=== PATIENT | female | born 1955 | race African-American/Black ===

== ENCOUNTER 2023-10-15 07:27 | Inpatient (IN) | payer MEDICARE, MEDICAID ==
[~2023-10-15] VITALS: Ht 167.6 cm; Wt 93.0 kg
[2023-10-15] MEDS ORDERED: SODIUM CHLORIDE 0.9% 1,000 ML IV SCH (07:30)
[2023-10-15] MEDS ORDERED: ROPIVACAINE HCL 1% 20 ML VIAL EPI ONE (08:09)
[2023-10-15] MEDS ORDERED: VANCOMYCIN HCL 1 GM/VIAL ONE (08:09)
[2023-10-15] MEDS ORDERED: POLYMYXIN B SULFATE 500000 UNITS/VIAL ONE (08:09)
[2023-10-15] MEDS ORDERED: EPINEPHRINE 1:1000 1 MG/ML AMP ONE (08:10)
[2023-10-15] MEDS ORDERED: KETOROLAC 30MG/ML VIAL ONE (08:10)
[2023-10-15] MEDS ORDERED: LIDOCAINE HCL/EPINEPHRINE 1%-EPI 1:100,000 20 ML VIAL ONE (08:10)
[2023-10-15] MEDS ORDERED: MORPHINE SULFATE/PF 1MG/ML 10ML AMP ONE (08:10)
[2023-10-15] MEDS ORDERED: TRANEXAMIC ACID 20 ML ONE (08:46)
[2023-10-15 08:51] LABS: *AMPHETAMINES SCREEN URINE NEGATIVE (NEGATIVE); *BARBITURATES SCREEN URINE NEGATIVE (NEGATIVE); *BENZODIAZEPINES SCREEN URINE NEGATIVE (NEGATIVE); *COCAINE SCREEN URINE NEGATIVE (NEGATIVE); CANNABINOID URINE SCREEN NEGATIVE (NEGATIVE); ECSTASY MDMA SCREEN URINE NEGATIVE (NEGATIVE); METHADONE URINE SCREEN Neg (NEGATIVE); OPIATES URINE SCREEN NEGATIVE (NEGATIVE); PHENCYCLIDINE URINE SCREEN NEGATIVE (NEGATIVE)
[2023-10-15] MEDS ORDERED: METF-414 PO (09:23)
[2023-10-15] MEDS ORDERED: OLAN10TA72 PO ×2 (09:23)
[2023-10-15] MEDS ORDERED: OMEP40CA20 PO (09:23)
[2023-10-15] MEDS ORDERED: CHOL500063 PO (09:23)
[2023-10-15] MEDS ORDERED: DIPH25TA26 PO (09:23)
[2023-10-15] MEDS ORDERED: PIME30CR TP (09:23)
[2023-10-15] MEDS ORDERED: ATOR20TA65 PO (09:23)
[2023-10-15] MEDS ORDERED: AMLO10TA80 PO (09:23)
[2023-10-15] MEDS ORDERED: [UNRECOGNIZED DRUG - CODE] TP (09:23)
[2023-10-15] MEDS ORDERED: HYDR200T35 PO (09:23)
[2023-10-15] MEDS ORDERED: CELE-116 PO (09:23)
[2023-10-15] MEDS ORDERED: MIDAZOLAM HCL 2 MG/2 ML VIAL ONE (10:26)
[2023-10-15] MEDS ORDERED: FENTANYL CITRATE/PF 50MCG/ML 2ML VIAL ONE ×2 (10:29)
[2023-10-15] MEDS ORDERED: CEFAZOLIN SODIUM 1000MG/VIAL ONE (10:29)
[2023-10-15] MEDS ORDERED: GLYCOPYRROLATE 0.2 MG/ML 2ML VIAL ONE (10:36)
[2023-10-15] MEDS ORDERED: PROPOFOL 200MG/20ML VIAL IV ONE (10:37)
[2023-10-15] MEDS ORDERED: SUCCINYLCHOLINE CHLORIDE 200MG/10ML IV ONE (10:38)
[2023-10-15] MEDS ORDERED: DEXAMETHASONE 4MG/ML 1ML VIAL ONE (10:40)
[2023-10-15] MEDS ORDERED: ONDANSETRON HCL 4MG/2ML INJ ONE (10:40)
[2023-10-15] MEDS ORDERED: ROCURONIUM BROMIDE 10MG/ML VIAL 5ML IV ONE (10:41)
[2023-10-15] MEDS ORDERED: ONDANSETRON HCL 4MG/2ML INJ IV PRN ×2 (11:00→11:45)
[2023-10-15] MEDS ORDERED: FENTANYL CITRATE/PF 50MCG/ML 2ML VIAL IV PRN (11:00)
[2023-10-15] MEDS ORDERED: SKIN ADHESIVE 0.7 GM EA TOP ONE (11:35)
[2023-10-15] MEDS ORDERED: ACETAMINOPHEN 325MG TABLET PO PRN (11:45)
[2023-10-15] MEDS: MEPERIDINE HCL/PF 25MG/ML CPJ IV PRN (13:38)
[2023-10-15] MEDS ORDERED: CEFAZOLIN 1000MG PREMIX 50 ML IV SCH (14:00)
[2023-10-15] MEDS: METOCLOPRAMIDE HCL 10MG/2ML VIAL IV SCH (14:19)
[2023-10-15 14:25] VITALS: BP 156/89; PULSE 70; RESP 16; TEMP 98
[2023-10-15 15:00] VITALS: BP 158/86; PULSE 70; RESP 16; TEMP 98
[2023-10-15] MEDS: CEFAZOLIN 1000MG PREMIX 50 ML IV SCH ×2 (15:36→22:15)
[2023-10-15 16:00] VITALS: BP 138/89; PULSE 89; RESP 16; TEMP 98
[2023-10-15] MEDS ORDERED: ERGO1250 PO (17:43)
[2023-10-15] MEDS ORDERED: NALOXONE HCL 0.4MG/ML VIAL IV PRN (17:45)
[2023-10-15 18:20] LABS: CALCIUM 9.4 mg/dL (8.7-10.4); CARBON DIOXIDE 24 mEq/L (21-32); CHLORIDE 106 mEq/L (98-107); CREATININE 0.9 mg/dL (0.6-1.0); GLUCOSE 130 mg/dL (70-105); POTASSIUM 4.3 mEq/L (3.5-5.1); SODIUM 140 mEq/L (136-145); UREA NITROGEN BLOOD 21 mg/dL (9-23)
[2023-10-15 20:00] VITALS: BP 121/64; PULSE 100; RESP 18; TEMP 99.1
[2023-10-15] MEDS: DOCUSATE SODIUM 250MG CAPSULE PO SCH (20:24)
[2023-10-15] MEDS: ATORVASTATIN CALCIUM 20MG TABLET PO SCH (20:24)
[2023-10-15] MEDS: TRIAMCINOLONE ACETONIDE 0.1% CREAM 15GM TOP SCH (20:24)
[2023-10-15] MEDS: KETOROLAC 30MG/ML VIAL IV PRN (20:32)
[2023-10-15] MEDS ORDERED: FLUOCINOLONE ACETONIDE 0.025% TOP SCH (21:00)
[2023-10-15] MEDS ORDERED: FLUOCINONIDE 0.05% OINT 15GM TOP SCH (21:00)
[2023-10-16] VITALS: BP 112/56; PULSE 85; RESP 18; TEMP 98.1
[2023-10-16 04:00] VITALS: BP 120/62; PULSE 79; RESP 18; TEMP 97.7
[2023-10-16 08:00] VITALS: BP 121/64; PULSE 80; RESP 18; TEMP 98.2
[2023-10-16 08:11] LABS: BASOPHILS % 0.2 % (0.0-2.0); HEMATOCRIT. 28.6 % (36.0-48.0); HEMOGLOBIN. 9.5 g/dL (12.0-16.0); LYMPHOCYTES % 27.9 % (20.0-50.0); MEAN CORPUSCULAR HEMOGLOBIN 30.2 pg (28.0-32.0); MEAN CORPUSCULAR HGB CONC 33.3 g/dL (31.0-37.0); MEAN CORPUSCULAR VOLUME 90.9 fL (81.0-99.0); MEAN PLATELET VOLUME 8.4 fl (7.4-10.4); MONOCYTES % 8.8 % (2.0-8.0); NEUTROPHILS % 62.1 % (40.0-76.0); PLATELET 257 x1000/uL (130-400); RED BLOOD CELL COUNT 3.15 mill/uL (4.2-5.4); RED CELL DISTRIBUTION WIDTH 14.4 % (11.6-14.6); WHITE BLOOD COUNT 5.1 x1000/uL (4.5-11.0)
[2023-10-16] MEDS: METFORMIN HCL 500MG TABLET PO SCH (08:15)
[2023-10-16] MEDS: ASPIRIN 325MG EC TABLET PO SCH (08:15)
[2023-10-16] MEDS: OLANZAPINE 10MG TABLET PO SCH (08:15)
[2023-10-16] MEDS: AMLODIPINE 10MG TABLET PO SCH (08:15)
[2023-10-16] MEDS: CELECOXIB 200MG CAPSULE PO SCH (08:15)
[2023-10-16] MEDS: SENNOSIDES/DOCUSATE SOD 8.6/50MG TABLET PO SCH (08:15)
[2023-10-16 08:46] LABS: ALANINE AMINOTRANSFERASE 14 IU/L (10-49); ALBUMIN 3.9 g/dL (3.2-4.8); ASPARTATE AMINOTRANSFERASE 19 IU/L (<34); BILIRUBIN TOTAL 0.4 mg/dL (0.1-1.0); CALCIUM 8.9 mg/dL (8.7-10.4); CARBON DIOXIDE 26 mEq/L (21-32); CHLORIDE 105 mEq/L (98-107); CREATININE 0.8 mg/dL (0.6-1.0); GLUCOSE 141 mg/dL (70-105); POTASSIUM 3.7 mEq/L (3.5-5.1); PROTEIN TOTAL 5.5 g/dL (6.0-8.3); SODIUM 139 mEq/L (136-145); UREA NITROGEN BLOOD 24 mg/dL (9-23)
[2023-10-16] MEDS ORDERED: DIPYRIDAMOLE 25 MG TABLET PO SCH (09:00)
[2023-10-16 12:00] VITALS: BP 113/61; PULSE 87; RESP 18; TEMP 98.5
[2023-10-16] MEDS: HYDROCODONE/ACETAMINOPHEN 10/325MG TABLET PO PRN (13:52)
[2023-10-16 16:00] VITALS: BP 115/69; PULSE 87; RESP 18; TEMP 99
[2023-10-16 20:00] VITALS: BP 132/72; PULSE 86; RESP 18; TEMP 98.1
[2023-10-17] VITALS: BP 124/71; PULSE 80; RESP 18; TEMP 98.7
[2023-10-17 04:00] VITALS: BP 111/75; RESP 18; TEMP 98.1
[2023-10-17 08:00] VITALS: BP 124/73; PULSE 81; RESP 18; TEMP 99.9
[2023-10-17 12:00] VITALS: BP 106/68; PULSE 83; RESP 17; TEMP 97.9
[2023-10-17 16:02] VITALS: BP 118/61; PULSE 92; RESP 18; TEMP 98.7
[2023-10-17] MEDS: ASPIRIN 81MG TABLET PO SCH (16:46)
[2023-10-17 20:00] VITALS: BP 109/60; PULSE 89; RESP 18; TEMP 100.6
[2023-10-18] VITALS: BP 118/68; PULSE 92; RESP 18; TEMP 98.9
[2023-10-18 04:00] VITALS: BP 121/74; PULSE 94; RESP 19; TEMP 97.9
[2023-10-18 05:49] LABS: BASOPHILS % 0.6 % (0.0-2.0); EOSINOPHILS % 6.9 % (0.0-5.0); HEMATOCRIT. 27.8 % (36.0-48.0); HEMOGLOBIN. 9.2 g/dL (12.0-16.0); LYMPHOCYTES % 35.3 % (20.0-50.0); MEAN CORPUSCULAR HEMOGLOBIN 29.9 pg (28.0-32.0); MEAN CORPUSCULAR HGB CONC 33.2 g/dL (31.0-37.0); MEAN CORPUSCULAR VOLUME 90.2 fL (81.0-99.0); MEAN PLATELET VOLUME 8.6 fl (7.4-10.4); MONOCYTES % 8.4 % (2.0-8.0); NEUTROPHILS % 48.8 % (40.0-76.0); PLATELET 248 x1000/uL (130-400); RED BLOOD CELL COUNT 3.08 mill/uL (4.2-5.4); RED CELL DISTRIBUTION WIDTH 14.8 % (11.6-14.6); WHITE BLOOD COUNT 4.2 x1000/uL (4.5-11.0)
[2023-10-18 06:00] LABS: CARBON DIOXIDE 26 mEq/L (21-32); CHLORIDE 105 mEq/L (98-107); CREATININE 0.8 mg/dL (0.6-1.0); GLUCOSE 101 mg/dL (70-105); POTASSIUM 4.2 mEq/L (3.5-5.1); SODIUM 139 mEq/L (136-145); UREA NITROGEN BLOOD 19 mg/dL (9-23)
[2023-10-18 08:00] VITALS: BP 112/70; PULSE 80; RESP 19; TEMP 98.4
[2023-10-18] MEDS: HYDROCODONE/ACETAMINOPHEN 10/325MG TABLET PO PRN ×2 (09:09→22:52)
[2023-10-18 12:00] VITALS: BP 122/78; PULSE 78; RESP 20; TEMP 98.1
[2023-10-18] MEDS: FERROUS SULFATE 325MG TABLET PO SCH (12:30)
[2023-10-18] MEDS: LACTULOSE 20G/30ML UDC PO SCH (13:51)
[2023-10-18 16:00] VITALS: BP 114/69; PULSE 86; RESP 20; TEMP 98.1
[2023-10-18 20:00] VITALS: BP 118/72; PULSE 76; RESP 19; TEMP 98.7
[2023-10-19] VITALS (7 sets, daily range): BP systolic 94–147; BP diastolic 66–130; PULSE 78–85; RESP 18–19; TEMP 97.5–98.8; O2SAT 100
== END 2023-10-19 20:00 | DRG 470 ==
LOC: OR 07:27 → 6EST 14:10
PROC: 0SRC0J9 Replacement of Right Knee Joint with Synthetic Substitute, Cemented, Open Approach (ICD-10-PCS; principal; 2023-10-15)
DX: M17.11 Unilateral primary osteoarthritis, right knee (principal); F31.9 Bipolar disorder, unspecified; I10 Essential (primary) hypertension; E78.5 Hyperlipidemia, unspecified; J44.9 Chronic obstructive pulmonary disease, unspecified; D64.9 Anemia, unspecified; E11.9 Type 2 diabetes mellitus without complications; Z96.652 Presence of left artificial knee joint; G89.29 Other chronic pain; M54.50 Low back pain, unspecified; R53.81 Other malaise
CPT/HCPCS: 36415; 73562; 80048; 80053; 80305; 82962; 85025; 86850; 86900; 88305; 88311; 97110; 97116; 97162; 97166; 97530; 97535; J0330; J0690; J1100; J1885; J2175; J2250; J2274; J2405; J2704; J2765; J2795; J3010; J3370; J3490